=== PATIENT | female | born 1985 | race Caucasian/White ===

== ENCOUNTER 2022-02-05 14:03 | Emergency (ER) | payer OTHER ==
[~2022-02-05] VITALS: Ht 142.2 cm; Wt 45.6 kg
[2022-02-05 14:05] VITALS: BP 100/70
[2022-02-05] MEDS: NACL 0.9% 1,000 ML IV ONE (14:52)
[2022-02-05] MEDS: KETOROLAC 30 MG/ML VIAL IVP ONE (14:53)
[2022-02-05] MEDS: diphenhydrAMINE 50 MG/ML VIAL IVP ONE (14:56)
[2022-02-05] MEDS ORDERED: OFLOS OP (15:57)
[2022-02-05] MEDS ORDERED: ACET-9500 PO (15:57)
[2022-02-05 16:07] VITALS: BP 110/71
== END 2022-02-05 16:07 | disposition home or self-care (01) ==
LOC: MED 14:03
DX: G43.909 Migraine, unspecified, not intractable, without status migrainosus (principal); H10.9 Unspecified conjunctivitis; Z79.899 Other long term (current) drug therapy; Z79.2 Long term (current) use of antibiotics
CPT/HCPCS: 81025; 96361; 96374; 96375; 99284; J1200; J1885; J7030